=== PATIENT | female | born 1940 | race Caucasian/White ===

== ENCOUNTER → 2018-07-16 | Outpatient (CLI) | payer OTHER ==
[~2018-07-16] MED LIST: ACCUNEB SO1.25 MG/1 INH; AGGRENOX CAPSU1 EACH; ASA81BEC PO; ASPIR 8181 MG PO; ASPIRIN; ASPIRIN81 M2 PO; ATIVAN0.5 MG PO; AUGMENTIN 875875 MG PO; BENADRYL25 MG PO; BISCOLAX10 MG RC; CARBIDOPA-LEVO1 EAC9; CLONAZEPAM; COLACE 100 MG100 MG PO; DIPHENHIST25 M2 PO; DUONEB 2.5-0.5 M3 ML INH; FLEXERIL PO; FOLIC ACID1 MG PO; HYDROCODON-ACE1 EAC7 PO; HYDROCODONE-AP1 EAC6 PO; KLOR-CON 1010 MEQ PO; LAMICTAL100 MG PO; LAMOTRIGINE25 M3 PO; LASIX 20 MG TAB20 MG PO; LEVAQUIN 500 M500 M2 PO; LEVOTHROID; LEVOTHYROXIN0.025 MG; LEVOTHYROXIN0.112 M1 PO; LEVOTHYROXIN0.125 M1 PO; LEVOTHYROXINE100 MC1 PER TUBE; LIPITOR10 MG PO; LISINOPRIL10 MG PO; MAG-AL PLUS SUS30 ML PO; MILK OF MA2400 MG/10 PO; MIRALAX255 GM PO; MIRAPEX0.25 MG; MIRAPEX0.5 MG PO; MIRAPEX1.5 MG PO; MOTRIN 600 MG600 M1 OR; NEURONTIN 300300 M1 PO; NEURONTIN 400400 M1; NEURONTIN600 MG PO; NORCO 5-325 TA1 EACH PO; PLAVIX 75 MG TA75 M1 PO; POTASSIUM20 PO; PRAMIPEXOLE DI0.5 MG PO; PRAMIPEXOLE DI1.5 MG PO; PRAMIPEXOLE ER1.5 MG PO; PROAIR HFA8.5 GM INH; SINEMET 10-1001 EAC1 PO; TRAMADOL 50 MG50 MG PO; TYLENOL325 MG PO; VENTOLIN HFA 1818 GM INH; ZESTRIL10 MG PO; ZPAK PO
== END ==
LOC: RAD 15:17
DX: M47.812 Spondylosis without myelopathy or radiculopathy, cervical region (principal); M19.011 Primary osteoarthritis, right shoulder; M25.811 Other specified joint disorders, right shoulder; M48.02 Spinal stenosis, cervical region; M43.12 Spondylolisthesis, cervical region; I10 Essential (primary) hypertension; E03.9 Hypothyroidism, unspecified; J44.9 Chronic obstructive pulmonary disease, unspecified; E78.00 Pure hypercholesterolemia, unspecified

== ENCOUNTER → 2018-07-25 | Outpatient (CLI) | payer OTHER ==
[~2018-07-25] VITALS: Ht 162.6 cm; Wt 63.5 kg
--- NOTE | ~2018-07-25 | HPC ---
[facility] [place] [address] PAIN MANAGEMENT CONSULTATION Name: EBONIE BRAVO Room #: REG [facility] Nelly#: [id number] Admission: 07/25/18 Attend Phys: Dayron Colby MD Discharge: Date of : 40 Report #: [id number] THIS REPORT FOR: //name// CC: Dayron Sandhu MD DATE OF SERVICE: 07/25/2018 PRIMARY CARE PHYSICIAN: Dr. Eliecer Sandhu. CHIEF COMPLAINT: Right shoulder pain. HISTORY OF PRESENT ILLNESS: The patient is a 78-year-old female who has been referred to the pain clinic for evaluation of pain. The patient has a history of right upper shoulder as well as neck pain. She is accompanied by her son. The patient had a stroke few years ago. She notes some weakness on her right side. She has osteoarthritis involving the right shoulder. She has limited range of motion in the shoulder. The patient's son states that she went to the orthopedic doctor. She received an injection in the shoulder. He told her that given the long history of this situation, surgery is not a significant option at this juncture. The patient has used tramadol in the past. She feels that that medication has been helpful. The patient is also taking Neurontin. Her son has been given the Neurontin medication. She has been taking 300 mg once a day instead of 3 times a day. She feels that that is helpful. ALLERGIES: No known drug allergies. MEDICATIONS: Pramipexole, aspirin 81 mg, Synthroid 0.125 mg, Lipitor 10 mg, Neurontin 300 mg, and Lasix 20 mg. PAST MEDICAL HISTORY: Thyroid disease, hypertension, history of stroke, history of COPD, diskectomy in 2000, TIA 20 years ago at age 40, 3 CVAs in 1999, 2000, 2001, hypercholesterolemia, restless leg syndrome, hypothyroidism, left CVA on 10/03/2017. PAST SURGICAL HISTORY: Disk removal, plate inserted and fusion in 2000, neck/back in 2004, and right shoulder in 2005. SOCIAL HISTORY: She is retired. REVIEW OF SYSTEMS: Generally good health, fatigue, wears glasses, hearing loss, shortness of breath, heart trouble, shortness of breath while lying flat, stroke, memory loss, depression, insomnia, thyroid disease, slow to heal, bleeding tendencies. [facility] [address] [place] [address] PAIN MANAGEMENT CONSULTATION Name: EBONIE BRAVO Room #: REG CL Nelly#: [id number] Admission: 07/25/18 Attend Phys: Dayron Colby MD Discharge: Date of : 40 Report #: [id number] LABORATORY DATA: Right shoulder x-ray 2-view on 07/16/2018. Impression: 1. Severe progression of degenerative changes of the right humeral head with subchondral cyst formation. Sclerosis and irregularity suggestive of early avascular necrosis. 2. Prior surgical changes of the humeral head without change. 3. Slight anterior position of the humeral head in relationship to the glenoid. This appears unchanged as compared to 2014, suggesting possible chronic anterior subluxation. Recommended clinical findings correlation for dislocation of the glenohumeral joint. CT imaging could be performed. Cervical x-ray on 07/16/2018. Indication - neck pain. Findings compared to the cervical spine dated 03/21/2006. Findings: There is approximately 2 mm of anterolisthesis of C3 on C4 with severe associated disk space loss. The patient is status post anterior cervical fusion with fixation plate and screws from C5 through C7. No abnormal prevertebral soft tissue swelling and the odontoid is intact. Posterior facet degenerative changes are present. Multilevel bony neural foraminal narrowing is present. PAIN CLINIC ASSESSMENT AND PQRS: 1. History of osteoarthritis involving the right shoulder. 2. Rheumatoid arthritis. The patient is not being treated for rheumatoid arthritis. 3. Height 5 feet 4 inches, weight 140 pounds, BMI is 24. 4. Vital signs: Blood pressure 110/62, pulse 77, respiratory rate 14, room air saturation 96%. 5. Pain intensity 7/10 6. Fall history: The patient has not fallen in the last 3 months. 7. Blood thinner. The patient is not on a blood thinning medication. 8. Hypertension. The patient is being treated for hypertension. 9. Opioid therapy. The patient is not on an opioid regimen. 10. Risk assessment tool. 11. Functional assessment tool. 12. Recreational drug use. The patient denies use of recreational drugs. 13. Tobacco: The patient has never smoked. 14. Alcohol: The patient denies use of alcoholic beverages. PHYSICAL EXAMINATION: GENERAL: The patient is a well-developed, white female, appears her stated age. She is alert and oriented x 3. Her affect is appropriate. She does not speak very much, but does state affirmatively to questions when asked. Her son is present and assists with the history. NECK: Without adenopathy or JVD. The patient sits in a wheelchair. Her son holds her right arm in his hand to keep it in a steady position. Movement of this shoulder causes increased pain and discomfort. She complains of some pain and discomfort down in her shoulder, down into the forearm and down into her hands. Also, has some pain and discomfort in her shoulder on the right side. [address] [address] PAIN MANAGEMENT CONSULTATION Name: EBONIE BRAVO Room #: REG [facility]#: [id number] Admission: 07/25/18 Attend Phys: Dayron Colby MD Discharge: Date of : 40 Report #: [id number] LUNGS: Clear to auscultation. HEART: Regular. ABDOMEN: Nontender. Bowel sounds present. Upper extremity muscle strength is limited and the patient holds the right arm in a controlled/guarded position. Moves her left arm. Strength in this when judged to be 4+/5 for the major muscle groups. The patient is in a wheelchair. IMPRESSION: 1. Right shoulder pain, status post right shoulder pathology with probable dislocation since about 2013. 2. Thyroid disease. 3. Hypertension. 4. History of stroke. 5. History of chronic obstructive lung disease. 6. Diskectomy in 2000. 7. Transverse ischemic attack 20 years ago at age 40. 8. Three CVAs in 1999, 2000, 2001. 9. Hypercholesterolemia. 10. Restless leg syndrome. 11. Hypothyroidism. 12. Left cerebrovascular accident on 10/03/2017. RECOMMENDATIONS: We discussed treatment options with the patient and her son. The patient I think would benefit from additional gabapentin. Her son will increase the gabapentin to 1 p.o. t.i.d. as she is able to tolerate it. If she has any problems with the medication, he will then stop/decrease the medication and call the physician. She states that she has had tramadol in the past. She found that this was helpful. We will rewrite a script for tramadol 1 p.o. t.i.d. The patient will receive tramadol. The patient has also been given a script for hydrocodone 5/325 mg 1 p.o. b.i.d. as needed. The patient does note increased pain and discomfort with movement of her arm. The patient's son states that he helps to range her shoulder. He will give her the hydrocodone prior to ranging of that to increase and keep her arm as flexible as possible. She will call us if she has any concerns. We would like to thank you for letting us participate in her care. We hope she continues to improve. <ELECTRONICALLY SIGNED> By: Dayron Colby MD 08/04/18 [id number] Dayron Colby MD /[facility]
[2018-07-25 13:46] VITALS: BP 110/62
== END ==
LOC: PAIN 06:50
DX: M25.511 Pain in right shoulder (principal); E07.9 Disorder of thyroid, unspecified; I10 Essential (primary) hypertension; J44.9 Chronic obstructive pulmonary disease, unspecified; E78.00 Pure hypercholesterolemia, unspecified; E03.9 Hypothyroidism, unspecified; I63.9 Cerebral infarction, unspecified; G45.9 Transient cerebral ischemic attack, unspecified; G25.81 Restless legs syndrome; M51.06 Intervertebral disc disorders with myelopathy, lumbar region; Z79.899 Other long term (current) drug therapy